=== PATIENT | female | born 1945 | race African-American/Black ===

== ENCOUNTER 2018-03-27 16:13 | Inpatient (IN) | payer MEDICARE, OTHER ==
[~2018-03-27] VITALS: Ht 160 cm; Wt 56.0 kg
--- OUTSIDE RECORDS SUMMARY | 2018-03-27 16:16 | XMS REPORT ---
Author Author [facility] Address Unknown Phone Unavailable Care Team Providers Care Clam Picker Name Role Phone Unavailable Unavailable Payers Payer Name Policy Type Policy Number Effective Date Expiration Date Problems This patient has no known problems. Allergies, Adverse Reactions, Alerts Allergy Name Allergy Type Status Severity Reaction(s) Onset Date Inactive Date Treating Clinician Comments Penicillins DA Active SV 2018-03-23 00:00:00 No Known Drug Allergies DA Active U 2010-01-18 00:00:00 Medications This patient has no known medications.
--- NOTE | 2018-03-27 16:56 | Diagnostic Imaging Report ---
ADDENDUM #1 This addendum was made for billing purposes: Exam was performed per stroke protocol. Per face sheet, patient is with altered mental status. Signed by: Dr. Cachorro Keating M.D. on 04/06/2018 1:55 PM ORIGINAL REPORT Exam: Head CT without contrast History: Rule out CVA. Comparison studies: None Technique: Axial images were obtained from the skull base to the vertex. Coronal and sagittal images reconstructed from the axial data. Dose modulation, iterative reconstruction, and/or weight based adjustment of the mA/kV was utilized to reduce the radiation dose to as low as reasonably achievable. Findings: Scalp: No abnormalities. Bones: No fractures, blastic or lytic lesions. Brain sulci: Appropriate for age. Ventricles: Normal in size and configuration. No hydrocephalus. Extra-axial spaces: No masses, no fluid collection. Scattered dystrophic calcification, most of which are leptomeningeal-based without surrounding edema or mass effect. Parenchyma: No mass, acute hemorrhage or acute or chronic cortical vascular insults. A few scattered hypodensities in the supratentorial white matter are nonspecific but most compatible with chronic microvascular ischemic changes. Sellar/suprasellar region: No abnormalities. Craniocervical junction: Patent foramen magnum. No Chiari one malformation. Incidental findings: Atherosclerotic calcifications in the carotid siphons and in the left intradural vertebral artery. IMPRESSION: No acute intracranial abnormalities. Specifically, no mass, acute hemorrhage or acute cortical vascular insults. Chronic findings: 1. Mild generalized volume loss. 2. Mild chronic microvascular ischemic changes. 3. Incidental scattered dystrophic calcifications. Similar findings can be seen with the chronic calcified nodular stage of neurocysticercosis. Signed by: Dr. Cachorro Keating M.D. on 03/27/2018 4:53 PM
[2018-03-27 17:06] LABS: ABG PCO2 36 mmHg (41-51); ABG PH 7.51 (7.31-7.41); ABG PO2 81 mmHg (80-105)
[2018-03-27 17:07] LABS: ABG HCO3 29 mmol/L (23-28)
[2018-03-27 17:15] LABS: CLARITY,URINE SL CLOUDY (CLEAR); COLOR,URINE YELLOW (YELLOW); LEUKOCYTE ESTERASE ,URINE NEGATIVE (NEGATIVE); NITRITE,URINE NEGATIVE (NEGATIVE); PROTEIN,URINE DIPSTICK 2+ (NEGATIVE)
[2018-03-27 17:16] LABS: BILIRUBIN,URINE NEGATIVE (NEGATIVE); KETONES,URINE TRACE (NEGATIVE); URINE UROBILINOGEN 0.2 mg/dL (0.2 - 1)
[2018-03-27 17:18] LABS: AMPHETAMINES SCREEN,URINE NEGATIVE (NEGATIVE); BENZODIAZEPINES SCREEN,URINE NEGATIVE (NEGATIVE); PHENCYCLIDINE SCREEN,URINE NEGATIVE (NEGATIVE)
[2018-03-27 17:20] LABS: BASOPHILS # (AUTO) 0.1 (0.0-0.1); BASOPHILS % 0.9 % (0.0-1.0); EOSINOPHILS # (AUTO) 0.3 (0.0-0.4); HEMATOCRIT 30.4 % (34.2-44.1); HEMOGLOBIN 9.7 g/dL (12.0-16.0); LYMPHOCYTES # (AUTO) 2.9 (1.0-3.2); LYMPHOCYTES % 40.4 % (18.0-39.1); MEAN CORPUSCULAR HEMOGLOBIN 26.9 pg (28-32); MEAN CORPUSCULAR HGB CONC 31.9 g/dL (31-35); MEAN CORPUSCULAR VOLUME 84.2 fL (81-99); MONOCYTES # (AUTO) 0.9 (0.2-0.8); MONOCYTES % 13.2 % (4.4-11.3); NEUTROPHILS # (AUTO) 2.9 (2.1-6.9); NEUTROPHILS % 41.2 % (38.7-80.0); PLATELET COUNT 130 x10e3/uL (140-360); RED BLOOD COUNT 3.61 x10e6/uL (3.6-5.1); RED CELL DISTRIBUTION WIDTH 16.7 % (11.7-14.4)
[2018-03-27 17:28] LABS: BACTERIA,URINE MANY /HPF; WBC,URINE (MAN) 0-5 /HPF (0-5)
[2018-03-27 17:29] LABS: AMORPHOUS SEDIMENT,URINE MODERATE (FEW)
[2018-03-27 17:35] LABS: ALBUMIN 2.6 g/dL (3.5-5.0); ALBUMIN/GLOBULIN RATIO 0.6 (0.8-2.0); ANION GAP 14.1 mmol/L (8-16); CALCIUM 8.9 mg/dL (8.4-10.2); CREATININE, SERUM 3.64 mg/dL (0.57-1.11); POTASSIUM 4.1 mmol/L (3.5-5.1)
[2018-03-27 17:42] LABS: CREATINE KINASE MB 3.6 ng/mL (0-5.0)
[2018-03-27 17:56] LABS: B-TYPE NATRIURETIC PEPTIDE2 64.9 pg/mL (0-100)
[2018-03-27] MEDS ORDERED: LACTULOSE SYRUP 20 GM/30 ML UDC PO PRN ×2 (18:00→22:00)
--- NOTE | 2018-03-27 18:29 | Diagnostic Imaging Report ---
EXAMINATION: CHEST SINGLE (PORTABLE) INDICATION: Altered mental status. ^ERMD ORDER ^[id number] ^1710 ^Y COMPARISON: None FINDINGS: AP view TUBES and LINES: Right internal jugular dialysis catheter in place with tip overlying right atrium. LUNGS: Lungs are well inflated. Mild central peribronchovascular thickening/cuffing. PLEURA: No significant pleural effusion or pneumothorax. HEART AND MEDIASTINUM: The cardiomediastinal silhouette is unremarkable. Aorta is calcified and tortuous. BONES AND SOFT TISSUES: No acute osseous lesion. Soft tissues are unremarkable. UPPER ABDOMEN: No free air under the diaphragm. IMPRESSION: Mild central peribronchovascular thickening/cuffing. Signed by: Dr. Mc Murray MD on 03/27/2018 6:25 PM
[2018-03-27] MEDS ORDERED: THIAMINE HCL100 MG PO (20:30)
[2018-03-27] MEDS ORDERED: HYDRALAZINE HCL25 MG PO (20:30)
[2018-03-27] MEDS ORDERED: FAMOTIDINE20 MG PO (20:30)
[2018-03-27] MEDS ORDERED: ASPIR 8181 MG PO (20:31)
[2018-03-27] MEDS ORDERED: LACTULOSE20 GM/30 M PO (20:31)
[2018-03-27] MEDS ORDERED: NORVASC5 MG PO (20:31)
[2018-03-27] MEDS ORDERED: LEXAPRO10 MG PO (20:32)
[2018-03-27] MEDS ORDERED: PANTOPRAZOLE SO40 MG PO (20:32)
[2018-03-27] MEDS ORDERED: CALCIUM ACETAT667 M1 PO (20:32)
[2018-03-27] MEDS ORDERED: XIFAXAN550 MG PO (20:33)
[2018-03-27] MEDS ORDERED: SODIUM BICARBO650 MG PO (20:33)
[2018-03-27] MEDS ORDERED: PRAVASTATIN SOD10 MG PO (20:33)
[2018-03-27] MEDS ORDERED: TRAZODONE HCL50 MG PO (20:34)
[2018-03-27 21:45] VITALS: BP 179/81
[2018-03-28] VITALS (17 sets, daily range): BP systolic 116–179; BP diastolic 54–81
[2018-03-28] MEDS: LACTULOSE SYRUP 20 GM/30 ML UDC PO SCH ×3 (04:30→17:30)
--- NOTE | 2018-03-28 12:51 | History and Physical ---
CHIEF COMPLAINT: Altered mental status. HISTORY OF PRESENT ILLNESS: Ms. Ochoa is a 72-year-old female. She is a [facility] resident at [place]. Source of history is the daughter who is sitting at the bedside. Patient was sent here because of altered mental status. In the emergency room, neurology was consulted and ammonia was checked, which was 350, and patient was started on lactulose and was admitted for further treatment. According to the daughter, patient has history of hepatitis C, cirrhosis of the liver, alcoholic liver disease. She lives in [facility]. Her care is at [place]. She is currently obtunded; however, the vital signs have been stable. Blood pressure and heart rate has been stable and she is protecting the airway. REVIEW OF SYSTEMS: Unable to elicit any because of patient's mental status. PAST MEDICAL HISTORY: Hepatitis C, cirrhosis of the liver, end-stage renal disease. She is on dialysis per the family and patient was on her way to dialysis when she was completely obtunded and she was brought in. According to the daughter, the lactulose was as needed and that is why it was not given on time. PAST SURGICAL HISTORY: Unknown. FAMILY AND SOCIAL HISTORY: Longstanding history of alcohol use, currently does not drink. PHYSICAL EXAMINATION VITAL SIGNS: Temperature 97.1, pulse of 88, blood pressure 146/67, respiratory rate of 18, O2 sat 96% on room air. HEENT: Head atraumatic, normocephalic. NECK: Supple. She grimaces on deep sternal rub. She has an NG tube. CHEST: Clear to auscultation bilaterally. No wheezing. HEART: S1, S2 audible. No murmurs, gallops, or rub. ABDOMEN: Soft, nontender, nondistended. EXTREMITIES: No clubbing, cyanosis, or edema. NEUROLOGICAL: She is completely unresponsive, grimaces on deep sternal rub. IMAGING: Chest x-ray is normal. Brain CT is showing generalized volume loss, but no acute stroke. ASSESSMENT: Ms. Ochoa is a 72-year-old female, she presented with altered mental status. CURRENT PROBLEMS 1. Hepatic encephalopathy. 2. History of hepatitis C. 3. History of alcoholic liver disease. 4. End-stage renal disease. 5. Hypertension. PLAN 1. Neurology consultation was done from the emergency room. I have discussed the case with Dr. Willis. It seems like it is due to metabolic encephalopathy due to hyperammonemia. 2. We will start the patient on lactulose and rifaximin. 3. GI consult. 4. Nephrology consult for routine hemodialysis. We will recheck labs and ammonia in a.m. Transfer the patient to [facility]. Job#: [id number] LPA
--- NOTE | 2018-03-28 14:53 | Consultation ---
DATE OF CONSULTATION: March 28, 2018 NEUROLOGY CONSULT NOTE HISTORY OF PRESENT ILLNESS: Ms. Ochoa is a 72-year-old woman with past medical history significant for hypertension, diabetes mellitus, end-stage renal disease on hemodialysis Mondays, Wednesdays, and Fridays, hepatitis C, and alcoholic cirrhosis, admitted to [facility] on March 27, 2018 with altered mental status. On the day of admission, the patient was en route to hemodialysis when she became confused. Ms. Ochoa was brought to the emergency center at [facility] for further evaluation of her confusion. Upon arrival in the emergency center, the patient was afebrile with a blood pressure of 172/59 mmHg and a pulse of 70 beats per minute. On neurological examination, the patient was noted to be disoriented with abnormal mood/affect or speech. While in the emergency center, routine blood and urine studies were ordered. Amongst these results, was an elevated ammonia level of 350. A CT of the brain without contrast was performed as well. This study did not reveal evidence of recent large territorial ischemia or hemorrhage. Ms. Ochoa was admitted to [facility] under observation status for treatment of hyperammonemia and end-stage renal disease. According to one of the patient's daughters, who is at the bedside, Ms. Ochoa has had numerous hospitalizations with poor altered mental status. According to this daughter, the patient will often refuse her medications, including her lactulose, leading to altered mental status and subsequent hospital admission. REVIEW OF SYSTEMS: Unable to assess secondary to encephalopathy. PAST MEDICAL HISTORY: Hypertension, diabetes mellitus, end-stage renal disease on hemodialysis on Mondays, Wednesdays and Fridays, hepatitis C, alcoholic cirrhosis,. PAST SURGICAL HISTORY: None. PAST HOSPITALIZATIONS: Childbirth x4, frequent hospitalizations with altered mental status as detailed in the history of present illness. FAMILY MEDICAL HISTORY: The patient's paternal and maternal grandparents are . Their medical histories are unknown. The patient's father is from an unknown cancer. Her mother is from a stroke. Ms. Ochoa is an only child. Patient does have 4 daughters, all of whom are alive. One daughter has hypertension, diabetes mellitus, and coronary artery disease with a prior myocardial infarction. The remaining 3 daughters are reportedly healthy. SOCIAL HISTORY: Ms. Ochoa is . She is a [facility] resident. The patient is retired. The patient is a current smoker. She has smoked cigarettes for approximately 50 years. At present, Ms. Ochoa does not drink alcohol. She does have a prior history of alcohol abuse. She stopped drinking approximately 5 years ago. Ms. Ochoa has a remote history of intravenous heroin use. Her daughter reports a prior history of marijuana use with last use being 15 to 20 years ago. HOME MEDICATIONS 1. Amlodipine 10 mg by mouth daily. 2. Aspirin 81 mg by mouth daily. 3. Calcium acetate 667 mg by mouth daily. 4. Lexapro 10 mg by mouth daily. 5. Pepcid 20 mg by mouth daily. 6. Hydralazine 50 mg by mouth every 12 hours. 7. Lactulose 30 mL by mouth daily. 8. Protonix 40 mg by mouth daily. 9. Pravastatin 10 mg by mouth at bedtime daily. 10. Rifaximin 550 mg by mouth twice daily. 11. Sodium bicarbonate 650 mg by mouth daily. 12. Thiamine 100 mg by mouth daily. 13. Trazodone 50 mg by mouth at bedtime daily. ALLERGIES: PENICILLIN. NO KNOWN FOOD ALLERGIES. NO KNOWN ALLERGIES TO LATEX. NO KNOWN ALLERGIES TO IODINE OR OTHER CONTRAST MATERIALS. PHYSICAL EXAMINATION VITAL SIGNS: Height 63 inches, weight 130 pounds, BMI 23.0 kg/m2. Blood pressure 146/67 mmHg, pulse 88 beats per minute, respiratory rate 14 breaths per minute, oxygen saturation 96% on room air. GENERAL: The patient is obtunded. HEENT: Normocephalic, atraumatic. Pupils are equal, round, and reactive to light. Moist mucous membranes. NECK: Supple. No appreciable thyromegaly. No appreciable carotid bruits. CARDIOVASCULAR: S1 and S2, regular rate and rhythm. No murmurs, rubs, or gallops. RESPIRATORY: Clear to auscultation bilaterally. No wheezes, rhonchi, or rales. EXTREMITIES: The skin is warm and dry. No clubbing, cyanosis, or edema. The posterior tibial and dorsalis pedis pulses are 1+ and symmetric. SKIN: No rashes or lesions. NEUROLOGIC: Memory/Attention: The patient is obtunded. Cranial Nerves: Pupils are 5 mm, and briskly reactive to 3 mm. Corneal, oculocephalic, and gag reflexes are intact. The face appears symmetric. Strength: Bulk is diminished throughout. Ms. Ochoa withdrawals all 4 extremities to peripheral noxious stimulation. Tone is normal. DTRs: Deep tendon reflexes are 2+ and symmetric at the triceps, biceps, brachioradialis, and patellas. Deep tendon reflexes are absent and symmetric at the Achilles. Plantar responses are flexor bilaterally. Sensation: Sensation is as per motor exam. Cerebellar: Unable to assess secondary to encephalopathy. Gait: Deferred. Speech: No spontaneous speech is produced during this encounter. Involuntary Movements: None. Pronator Drift: As per motor exam. LABORATORY DATA: The patient's comprehensive metabolic panel reveals an elevated creatinine of 3.64, a low estimated GFR of 12, an elevated serum glucose of 154, an elevated AST of 45, a decreased albumin of 2.6, an elevated globulin of 4.6, and a decreased albumin to globulin ratio of 0.6. Lactic acid 19.0. B-natriuretic peptide 64.9. Ammonia 350. Serum glucoses have ranged from 88 to 158. The CBC with differential and platelets reveals a white blood cell count 7.05 with 41.2% neutrophils, 40.4% lymphocytes, 13.2% monocytes, 4.0% eosinophils, and 0.9% basophils. The hemoglobin and hematocrit are 9.7 and 30.4, respectively. The platelet count is 130. An arterial blood gas revealed a pH of 7.51, a pCO2 of 36, a pO2 of 81, bicarbonate of 29, O2 saturation of 97.0, base excess of 6.0, and FiO2 of 21. A urinalysis was significant for 2+ protein, trace ketones, moderate amorphous sediment, and many urine bacteria. Urine drug screen was positive for opiates. DIAGNOSTIC STUDIES 1. Electrocardiogram, 03/27/2018: Normal sinus rhythm at 75 beats per minute. QT prolongation is noted. 2. CT of the brain without contrast, 03/27/2018: On my review, there is no evidence of recent large territorial ischemia, hemorrhage, mass, or mass effect. There is diffuse cerebral atrophy, appropriate for age. There are findings compatible with [id number] chronic small vessel ischemic disease. 3. Chest x-ray, 03/27/2018: Mild central peribronchovascular thickening/cuffing. 4. Echocardiogram, 03/28/2018: Ejection fraction 65%. Concentric left ventricular hypertrophy. Mild mitral regurgitation. ASSESSMENT AND PLAN: Ms. Ochoa is a 72-year-old woman with an extensive past medical history as detailed, admitted to [facility] on March 27, 2018 with encephalopathy in the setting of hyperammonemia and end-stage renal disease. Ms. Ochoa is obtunded on neurological examination. Otherwise, no focal findings are appreciated. Patient's laboratory data and other diagnostic studies have been reviewed and are documented above. In my opinion, Ms. Ochoa's encephalopathy is due to hyperammonemia with a minor contribution from end-stage renal disease. RECOMMENDATIONS 1. Additional laboratory data will be ordered as follows: Thyroid function test, a vitamin B1 level, a vitamin B12 level, rapid plasma reagin, blood and urine cultures. These studies will be ordered to evaluate for other possible causes of altered mentation. A repeat ammonia level has been ordered. 2. Continue treatment with lactulose as prescribed for hyperammonemia. 3. Continue hemodialysis for end-stage renal disease. 4. Limit treatment with sedative/hypnotic and pain medications as these will alter the patient's sensorium. 5. Utilize environmental cues to limit delirium. 6. Defer treatment of the remaining medical comorbidities to the primary and other services following the patient. Thank you for this consultation. I will continue to follow this patient while she remains in the hospital. TIME SPENT: 70 minutes. Job#: [id number] PKU MTDD
[2018-03-28 15:09] LABS: FREE THYROXINE INDEX 2.1984 (1.4-3.8); THYROID STIMULATING HORMONE 0.695 uIU/mL (0.350-4.940)
--- NOTE | 2018-03-28 15:31 | Consultation ---
DATE OF CONSULTATION: March 28, 2018 HISTORY: This is a 72-year-old who supposedly has history of cirrhosis secondary to previous history of alcohol abuse, presented to the hospital because of mental status changes and become weak and confused. Patient apparently was found to have evidence of hepatic encephalopathy. Per family, she does not have any problem with bleeding or abdominal pain. MEDICAL HISTORY: Significant for history of alcohol abuse and also history of renal disease, on hemodialysis. MEDICATIONS: Including thiamine, hydralazine, Norvasc, aspirin, calcium acetate, Lexapro, Protonix, pravastatin, Xifaxan, trazodone. ALLERGIES: NONE. SOCIAL HISTORY: Past history of alcohol use. FAMILY HISTORY: Noncontributory. REVIEW OF SYSTEMS: At this point is unobtainable. EXAM GENERAL: Patient is lying in bed, currently noncommunicative. VITAL SIGNS: Afebrile currently. HEAD, EYES, EARS, NOSE, AND THROAT: Normocephalic, atraumatic. NG tube is in place HEART: Regular. LUNGS: Clear. ABDOMEN: Soft, nontender at this point. EXTREMITIES: No clubbing. LAB VALUES: WBC of 7.5, hemoglobin of 9.7, platelets are 130. The chemistry on admission shows BUN of 26, creatinine of 3.64, AST of 45. Ammonia level 350. CAT scan of the head shows mild chronic microvascular ischemic changes and dystrophic calcifications. IMPRESSION 1. Mental status changes secondary to hepatic encephalopathy. 2. History of alcohol use and cirrhosis. 3. Anemia. RECOMMENDATIONS: Continue on lactulose at this point per NG along with Xifaxan and follow labs clinically. Job#: [id number] GUZMAN cc:TRACE WALDRON MD
--- NOTE | 2018-03-28 16:56 | Consultation ---
DATE OF CONSULTATION: NEPHROLOGY CONSULTATION REASON FOR CONSULT: End-stage renal disease. HISTORY OF PRESENT ILLNESS: Ms. Ochoa is a 72-year-old female with the following problem list: 1. End-stage renal disease. 2. End-stage liver disease with advanced cirrhosis and recurrent elevation in ammonia levels and encephalopathy. The patient is currently comatose and cannot provide any history or review of systems. The patient's daughter was at the bedside. The patient is a retirement patient. She was sent to the emergency room by the retirement due to comatose status. She was diverted from [facility] due to lack of bed availability and was admitted to this facility last night. PAST MEDICAL HISTORY: As above. SOCIAL HISTORY: alf resident. FAMILY HISTORY: Noncontributory. MEDICATIONS: Per medication list. PHYSICAL FINDINGS GENERAL: Elderly female underweight, comatose, will not arouse and in no acute distress. VITAL SIGNS: Blood pressure 163/67. SHENT: Head normocephalic, atraumatic. Fundi not visualized. Conjunctivae anicteric. NECK: Supple. LUNGS: Clear. HEART: Normal heart sounds. No additional sounds. ABDOMEN: Soft, nontender, nondistended. EXTREMITIES: No cyanosis, clubbing, or edema. LABORATORY FINDINGS: Noted and reviewed. ASSESSMENT AND PLAN 1. End-stage renal disease. The patient will receive hemodialysis per orders ultrafiltration as tolerated. 2. Encephalopathy secondary to high ammonia level estimated yesterday at 350 measured. Further management per primary care and GI. 3. Anemia of chronic disease. Hematocrit and hemoglobin are stable. 4. Disposition. We will follow this patient with you. I discussed my evaluation, assessment and plan of care with the patient's daughter at the bedside. All her questions were answered to her satisfaction until she had none. Job#: [id number] YUMIKO
[2018-03-28] MEDS ORDERED: SODIUM CHLORIDE 0.9% 1000ML 2,000 ML ONE (17:20)
[2018-03-28] MEDS: RIFAXIMIN 550 MG TABLET PO SCH (17:30)
[2018-03-28] MEDS ORDERED: HEPARIN SOD (PORCINE) 1000 UNIT/ML SDV IV PRN (19:00)
[2018-03-28] MEDS ORDERED: SODIUM CHLORIDE 0.9% 250ML 1,000 ML IV PRN (19:00)
[2018-03-28] MEDS ORDERED: MANNITOL 25% 12.5GM/50 ML VIAL IV PRN (19:00)
[2018-03-28] MEDS ORDERED: SODIUM CHLORIDE 0.9% 1000ML 2,000 ML IV PRN (19:00)
[2018-03-29] VITALS (20 sets, daily range): BP systolic 135–185; BP diastolic 49–86
[2018-03-29] MEDS: CEFTRIAXONE SOD 1 GM VIAL IV SCH ×2 (00:23→20:19)
[2018-03-29] MEDS: LACTULOSE SYRUP 20 GM/30 ML UDC PO SCH ×5 (00:23→22:22)
[2018-03-29 01:07] LABS: INR 1.13; PROTHROMBIN TIME 15.5 seconds (11.9-14.5)
[2018-03-29 01:15] LABS: BASOPHILS # (AUTO) 0.1 (0.0-0.1); BASOPHILS % 0.5 % (0.0-1.0); EOSINOPHILS # (AUTO) 0.1 (0.0-0.4); EOSINOPHILS % 0.8 % (0.0-6.0); HEMATOCRIT 33.8 % (34.2-44.1); HEMOGLOBIN 10.7 g/dL (12.0-16.0); LYMPHOCYTES # (AUTO) 1.7 (1.0-3.2); LYMPHOCYTES % 15.8 % (18.0-39.1); MEAN CORPUSCULAR HEMOGLOBIN 26.3 pg (28-32); MEAN CORPUSCULAR HGB CONC 31.7 g/dL (31-35); MONOCYTES # (AUTO) 1.3 (0.2-0.8); NEUTROPHILS # (AUTO) 7.4 (2.1-6.9); NEUTROPHILS % 69.9 % (38.7-80.0); PLATELET COUNT 53 x10e3/uL (140-360); RED BLOOD COUNT 4.07 x10e6/uL (3.6-5.1); RED CELL DISTRIBUTION WIDTH 16.6 % (11.7-14.4)
[2018-03-29 01:21] LABS: ALBUMIN 2.6 g/dL (3.5-5.0); ALBUMIN/GLOBULIN RATIO 0.5 (0.8-2.0); ANION GAP 14.5 mmol/L (8-16); CALCIUM 9.1 mg/dL (8.4-10.2); CREATININE, SERUM 2.56 mg/dL (0.57-1.11); PHOSPHORUS 3.3 MG/DL (2.3-4.7); POTASSIUM 3.5 mmol/L (3.5-5.1)
[2018-03-29 05:22] LABS: BASOPHILS # (AUTO) 0.1 (0.0-0.1); BASOPHILS % 0.6 % (0.0-1.0); EOSINOPHILS # (AUTO) 0.1 (0.0-0.4); EOSINOPHILS % 1.4 % (0.0-6.0); HEMATOCRIT 32.2 % (34.2-44.1); HEMOGLOBIN 10.2 g/dL (12.0-16.0); LYMPHOCYTES # (AUTO) 2.4 (1.0-3.2); MEAN CORPUSCULAR HEMOGLOBIN 26.7 pg (28-32); MEAN CORPUSCULAR HGB CONC 31.7 g/dL (31-35); MEAN CORPUSCULAR VOLUME 84.3 fL (81-99); MONOCYTES # (AUTO) 0.9 (0.2-0.8); MONOCYTES % 9.2 % (4.4-11.3); NEUTROPHILS # (AUTO) 6.6 (2.1-6.9); NEUTROPHILS % 64.6 % (38.7-80.0); PLATELET COUNT 69 x10e3/uL (140-360); RED BLOOD COUNT 3.82 x10e6/uL (3.6-5.1); RED CELL DISTRIBUTION WIDTH 16.9 % (11.7-14.4)
[2018-03-29 05:49] LABS: CREATININE, SERUM 3.07 mg/dL (0.57-1.11)
[2018-03-29] MEDS: ASPIRIN 81 MG CHEW TAB PO SCH (09:23)
[2018-03-29] MEDS: SODIUM BICARBONATE 650 MG TAB PO SCH (09:23)
[2018-03-29] MEDS: CALCIUM ACETATE 667 MG GELCAP PO SCH (09:23)
[2018-03-29] MEDS: RIFAXIMIN 550 MG TABLET PO SCH ×2 (09:23→16:52)
[2018-03-29] MEDS: THIAMINE HCL 100 MG TAB PO SCH (09:23)
[2018-03-29] MEDS: AMLODIPINE BESYLATE 5 MG TAB PO SCH (09:23)
[2018-03-29] MEDS: HYDRALAZINE HCL 25 MG TAB PO SCH ×2 (09:24→20:20)
[2018-03-29] MEDS ORDERED: CYCLOBENZAPRINE HCL 10 MG TAB PO PRN (14:15)
[2018-03-29] MEDS: TRAMADOL HCL 50 MG TAB PO PRN (16:58)
--- NOTE | 2018-03-29 18:03 | Diagnostic Imaging Report ---
Exam: Ultrasound of abdomen ascites survey Clinical history: Ascites. Technique: Using a curvilinear array transducer, real-time imaging was obtained of the abdomen. Findings: No free fluid or likely fluid collections identified within the abdomen. Impression: No ascites as per clinical query. Signed by: Dr. Radha Pritchett M.D. on 03/29/2018 6:00 PM
[2018-03-30 04:32] VITALS: BP 150/59
[2018-03-30] MEDS: LACTULOSE SYRUP 20 GM/30 ML UDC PO SCH ×2 (04:36→08:34)
[2018-03-30 04:56] LABS: BASOPHILS % 0.5 % (0.0-1.0); EOSINOPHILS # (AUTO) 0.3 (0.0-0.4); EOSINOPHILS % 4.2 % (0.0-6.0); HEMATOCRIT 28.2 % (34.2-44.1); HEMOGLOBIN 9.1 g/dL (12.0-16.0); LYMPHOCYTES # (AUTO) 2.8 (1.0-3.2); LYMPHOCYTES % 37.9 % (18.0-39.1); MEAN CORPUSCULAR HEMOGLOBIN 26.8 pg (28-32); MEAN CORPUSCULAR HGB CONC 32.3 g/dL (31-35); MEAN CORPUSCULAR VOLUME 83.2 fL (81-99); MONOCYTES # (AUTO) 0.7 (0.2-0.8); MONOCYTES % 9.9 % (4.4-11.3); NEUTROPHILS # (AUTO) 3.4 (2.1-6.9); NEUTROPHILS % 47.2 % (38.7-80.0); PLATELET COUNT 70 x10e3/uL (140-360); RED BLOOD COUNT 3.39 x10e6/uL (3.6-5.1); RED CELL DISTRIBUTION WIDTH 16.7 % (11.7-14.4)
[2018-03-30 05:14] LABS: INR 1.08
[2018-03-30 05:24] LABS: ALBUMIN 2.2 g/dL (3.5-5.0); ALBUMIN/GLOBULIN RATIO 0.5 (0.8-2.0); ANION GAP 13.4 mmol/L (8-16); CALCIUM 8.5 mg/dL (8.4-10.2); CREATININE, SERUM 3.61 mg/dL (0.57-1.11); MAGNESIUM 2.3 MG/DL (1.3-2.1); PHOSPHORUS 5.4 MG/DL (2.3-4.7); POTASSIUM 3.4 mmol/L (3.5-5.1)
[2018-03-30 08:00] VITALS: BP 152/62
[2018-03-30] MEDS: TRAMADOL HCL 50 MG TAB PO PRN (08:00)
[2018-03-30] MEDS: HYDRALAZINE HCL 25 MG TAB PO SCH ×2 (08:30→20:07)
[2018-03-30] MEDS: CALCIUM ACETATE 667 MG GELCAP PO SCH (08:33)
[2018-03-30] MEDS: RIFAXIMIN 550 MG TABLET PO SCH ×2 (08:33→16:00)
[2018-03-30] MEDS: SODIUM BICARBONATE 650 MG TAB PO SCH (08:33)
[2018-03-30] MEDS: ASPIRIN 81 MG CHEW TAB PO SCH (08:33)
[2018-03-30] MEDS: THIAMINE HCL 100 MG TAB PO SCH (08:33)
[2018-03-30 12:06] VITALS: BP 173/79
[2018-03-30] MEDS: AMLODIPINE BESYLATE 5 MG TAB PO SCH (12:18)
[2018-03-30 12:19] VITALS: BP 152/62
[2018-03-30 16:00] VITALS: BP 140/62
[2018-03-30] MEDS: BALSAM PERU/CASTOR OIL 60 GM OINT...G. TP SCH (16:00)
[2018-03-30 20:00] VITALS: BP 156/81
[2018-03-31] VITALS (8 sets, daily range): BP systolic 116–139; BP diastolic 56–75
[2018-03-31] MEDS: LACTULOSE SYRUP 20 GM/30 ML UDC PO SCH (08:30)
[2018-03-31] MEDS: HYDRALAZINE HCL 25 MG TAB PO SCH ×2 (08:30→20:25)
[2018-03-31] MEDS: THIAMINE HCL 100 MG TAB PO SCH (09:21)
[2018-03-31] MEDS: RIFAXIMIN 550 MG TABLET PO SCH ×2 (09:21→16:12)
[2018-03-31] MEDS: BALSAM PERU/CASTOR OIL 60 GM OINT...G. TP SCH ×2 (09:21→16:12)
[2018-03-31] MEDS: CALCIUM ACETATE 667 MG GELCAP PO SCH (09:21)
[2018-03-31] MEDS: SODIUM BICARBONATE 650 MG TAB PO SCH (09:21)
[2018-03-31] MEDS: AMLODIPINE BESYLATE 5 MG TAB PO SCH (09:21)
[2018-03-31] MEDS: ASPIRIN 81 MG CHEW TAB PO SCH (09:21)
--- NOTE | 2018-03-31 15:15 | Discharge Summary ---
The patient was admitted to Dr. Guajardo. long term patient of Dr. Hager on chronic hemodialysis. She is 72 years old and resides in [facility]. Admitted with altered mental status. She was found to have hepatic encephalopathy. Ammonia level was 350. Has a history of hepatitis C, cirrhosis and end-stage renal disease on dialysis. Her medications were adjusted. Given lactulose and rifaximin and gradually improved and became lucid. Her other medications were also reduced. She was seen by Dr. Fisher, Dr. Willis, and Dr. Dolan. She will be discharged once long term and dialysis bed have been arranged. Her hepatic encephalopathy improved. She has anemia apparently of chronic disease and chronic thrombocytopenia presumably related to her liver failure. Thyroid was normal. Coags were near normal. Ammonia level fell to 98. She was discharged to continue thiamine 100 mg a day, sodium bicarbonate 650 a day, rifaximin 550 a day, PhosLo, aspirin 81, Norvasc 10, lactulose 40 grams at breakfast, tramadol 25 mg q.8 p.r.n., cyclobenzaprine 10 mg q.8 p.r.n. muscle spasm, Apresoline 50 mg b.i.d., nitrofurantoin 50 mg for FLAKITA p.o. Enterococcus faecium was grown sensitive only to Cubicin, linezolid, and nitrofurantoin. There was no evidence of pyuria. LOVE JENKINS MD Job#: [id number]
[2018-03-31] MEDS: TRAMADOL HCL 50 MG TAB PO PRN (15:47)
[2018-03-31] MEDS: NITROFURANTOIN 50 MG CAP PO SCH (15:47)
[2018-04-01] VITALS: BP 123/67
[2018-04-01 04:00] VITALS: BP 130/59
[2018-04-01] MEDS: LACTULOSE SYRUP 20 GM/30 ML UDC PO SCH (07:30)
[2018-04-01 08:00] VITALS: BP 130/59
[2018-04-01 08:18] VITALS: BP 148/66
[2018-04-01] MEDS: HYDRALAZINE HCL 25 MG TAB PO SCH (08:30)
[2018-04-01] MEDS: THIAMINE HCL 100 MG TAB PO SCH (09:00)
[2018-04-01] MEDS: RIFAXIMIN 550 MG TABLET PO SCH (09:00)
[2018-04-01] MEDS: ASPIRIN 81 MG CHEW TAB PO SCH (09:00)
[2018-04-01] MEDS: AMLODIPINE BESYLATE 5 MG TAB PO SCH (09:00)
[2018-04-01] MEDS: CALCIUM ACETATE 667 MG GELCAP PO SCH (09:00)
[2018-04-01] MEDS: BALSAM PERU/CASTOR OIL 60 GM OINT...G. TP SCH (09:00)
[2018-04-01] MEDS: NITROFURANTOIN 50 MG CAP PO SCH (09:00)
[2018-04-01] MEDS: SODIUM BICARBONATE 650 MG TAB PO SCH (09:00)
[2018-04-01 12:00] VITALS: BP 158/71
== END 2018-04-01 12:28 | disposition home or self-care (01) | DRG 441 ==
LOC: ER 16:13 → ERHOLD 18:01 → IMCU 21:41 → OBSVTOIN 03-28 07:57 → IMCU 03-28 15:35 → MED/SURG2 03-31 20:40
PROVIDERS: ADMIT Internal Medicine; ATTEND Internal Medicine
PROC: 5A1D70Z Performance of Urinary Filtration, Intermittent, Less than 6 Hours Per Day (ICD-10-PCS; principal; 2018-03-28)
PROC: 5A1D70Z Performance of Urinary Filtration, Intermittent, Less than 6 Hours Per Day (ICD-10-PCS; 2018-03-31)
DX: K72.01 Acute and subacute hepatic failure with coma (principal); N18.6 End stage renal disease; G93.41 Metabolic encephalopathy; T83.511A Infection and inflammatory reaction due to indwelling urethral catheter, initial encounter; I12.0 Hypertensive chronic kidney disease with stage 5 chronic kidney disease or end stage renal disease; L89.152 Pressure ulcer of sacral region, stage 2; Z99.2 Dependence on renal dialysis; Z86.19 Personal history of other infectious and parasitic diseases; K70.30 Alcoholic cirrhosis of liver without ascites; E11.22 Type 2 diabetes mellitus with diabetic chronic kidney disease; D63.8 Anemia in other chronic diseases classified elsewhere; F10.21 Alcohol dependence, in remission; B95.2 Enterococcus as the cause of diseases classified elsewhere
CPT/HCPCS: 36415; 36600; 70450; 71045; 76705; 80048; 80053; 80307; 81001; 82140; 82248; 82550; 82553; 82607; 82805; 82948; 83605; 83735; 83880; 84100; 84425; 84436; 84443; 84479; 84484; 85025; 85610; 86592; 86706; 87040; 87086; 87186; 90962; 93005; 93306; 97139; 99284; G0378; J0696; J1644; J2150; J3411; J7030

== ENCOUNTER 2018-04-03 17:31 | Inpatient (IN) | payer MEDICARE ==
[~2018-04-03] VITALS: Ht 157.5 cm; Wt 55.5 kg
[2018-04-03] MEDS: LACTULOSE SYRUP 20 GM/30 ML UDC RC SCH (01:40)
[~2018-04-03 17:31] MED LIST: ASPIR 8181 MG PO; CALCIUM ACETAT667 M1 PO; FAMOTIDINE20 MG PO; HYDRALAZINE HCL25 MG PO; LACTULOSE20 GM/30 M PO; LEXAPRO10 MG PO; NORVASC5 MG PO; PANTOPRAZOLE SO40 MG PO; PRAVASTATIN SOD10 MG PO; SODIUM BICARBO650 MG PO; THIAMINE HCL100 MG PO; TRAZODONE HCL50 MG PO; XIFAXAN550 MG PO
[2018-04-03] MEDS ORDERED: SODIUM CHLORIDE 0.9% 1000ML 1,000 ML IV ONE (18:00)
--- NOTE | 2018-04-03 18:41 | Diagnostic Imaging Report ---
Examination: CT head without contrast Clinical Indication: Confusion; altered mental status. Technique: Transaxial noncontrast images from the skull base through the vertex were obtained. Sagittal and coronal reformatted images were done. Dose modulation, iterative reconstruction, and/or weight based adjustment of the mA/kV was utilized to reduce the radiation dose to as low as reasonably achievable. Comparison: Head CT dated 03/27/2018.. Findings: Scalp: No abnormalities. Bones: Intact. No fractures. No blastic or lytic lesions. Brain sulci: Mild volume loss for patient's age. Ventricles: No hydrocephalus. Extra-axial space: No abnormalities. Parenchyma: There are several dystrophic calcifications seen in the supratentorial brain, unchanged and related to prior infection or inflammatory process. There are patchy areas of low-attenuation within subcortical and periventricular white matter, nonspecific, but could represent microvascular ischemic disease. No masses, hemorrhage, or acute or chronic cortical based vascular insults. Suprasellar region: No abnormalities. Craniocervical junction: The foramen magnum is patent. No Chiari one malformation. Incidental findings: Atherosclerotic calcification of the cavernous and supraclinoid internal carotid and V4 segments of the bilateral vertebral arteries. Impression: 1. No new or acute intracranial finding when compared to prior head CT dated 03/27/2018. 2. Unchanged mild chronic microvascular ischemic change and volume loss. Signed by: Dr. Ghazal Mercado M.D. on 04/03/2018 6:37 PM
[2018-04-03 19:00] LABS: BASOPHILS % 0.4 % (0.0-1.0); EOSINOPHILS # (AUTO) 0.2 (0.0-0.4); EOSINOPHILS % 1.7 % (0.0-6.0); HEMATOCRIT 28.5 % (34.2-44.1); HEMOGLOBIN 9.2 g/dL (12.0-16.0); LYMPHOCYTES # (AUTO) 2.7 (1.0-3.2); LYMPHOCYTES % 29.2 % (18.0-39.1); MEAN CORPUSCULAR HGB CONC 32.3 g/dL (31-35); MEAN CORPUSCULAR VOLUME 83.6 fL (81-99); MONOCYTES % 10.6 % (4.4-11.3); NEUTROPHILS # (AUTO) 5.4 (2.1-6.9); NEUTROPHILS % 57.8 % (38.7-80.0); PLATELET COUNT 126 x10e3/uL (140-360); RED BLOOD COUNT 3.41 x10e6/uL (3.6-5.1)
[2018-04-03 19:19] LABS: ALBUMIN 2.3 g/dL (3.5-5.0); ALBUMIN/GLOBULIN RATIO 0.5 (0.8-2.0); ANION GAP 18.3 mmol/L (8-16); CALCIUM 8.4 mg/dL (8.4-10.2); CREATININE, SERUM 4.79 mg/dL (0.57-1.11); MAGNESIUM 2.4 MG/DL (1.3-2.1); POTASSIUM 4.3 mmol/L (3.5-5.1)
[2018-04-03 19:24] LABS: ABG HCO3 19 mmol/L (23-28); ABG PCO2 27 mmHg (41-51); ABG PH 7.46 (7.31-7.41); ABG PO2 97 mmHg (80-105)
--- NOTE | 2018-04-03 19:29 | Diagnostic Imaging Report ---
EXAMINATION: CHEST SINGLE (PORTABLE) INDICATION: Altered mental status. COMPARISON: 03/27/2018. FINDINGS: AP view TUBES and LINES: Right internal jugular dialysis catheter in place with tip overlying right atrium, unchanged. LUNGS: Bibasilar subsegmental atelectasis. PLEURA: No significant pleural effusion or pneumothorax. HEART AND MEDIASTINUM: The cardiomediastinal silhouette is unremarkable. Aorta is calcified and tortuous. BONES AND SOFT TISSUES: No acute osseous lesion. Soft tissues are unremarkable. UPPER ABDOMEN: No free air under the diaphragm. IMPRESSION: Bibasilar subsegmental atelectasis. No acute abnormality. Signed by: Dr. Radha Pritchett M.D. on 04/03/2018 7:25 PM
[2018-04-03 19:37] LABS: CREATINE KINASE MB 4.7 ng/mL (0-5.0)
[2018-04-03 19:39] LABS: THYROID STIMULATING HORMONE 0.329 uIU/mL (0.350-4.940)
[2018-04-03 20:14] LABS: CLARITY,URINE CLEAR (CLEAR); COLOR,URINE YELLOW (YELLOW); KETONES,URINE NEGATIVE (NEGATIVE); LEUKOCYTE ESTERASE ,URINE NEGATIVE (NEGATIVE); NITRITE,URINE NEGATIVE (NEGATIVE); PROTEIN,URINE DIPSTICK 2+ (NEGATIVE)
[2018-04-03 20:15] LABS: AMPHETAMINES SCREEN,URINE NEGATIVE (NEGATIVE); BENZODIAZEPINES SCREEN,URINE NEGATIVE (NEGATIVE); PHENCYCLIDINE SCREEN,URINE NEGATIVE (NEGATIVE)
[2018-04-03 20:16] LABS: BILIRUBIN,URINE NEGATIVE (NEGATIVE); URINE UROBILINOGEN 0.2 mg/dL (0.2 - 1)
[2018-04-03 20:24] LABS: BACTERIA,URINE MANY /HPF; EPITHELIAL CELLS,URINE RARE /LPF; RBC,URINE 0-5 /HPF (0-5); WBC,URINE (MAN) 0-5 /HPF (0-5); YEAST,URINE RARE
[2018-04-03] MEDS ORDERED: CALCIUM CARBON500 MG PO (20:52)
[2018-04-03] MEDS ORDERED: ATIVAN1 MG PO (20:52)
[2018-04-03] MEDS ORDERED: ZOFRAN4 MG PO (20:52)
[2018-04-03] MEDS ORDERED: COZAAR25 MG PO (20:52)
[2018-04-03] MEDS ORDERED: VIMPAT50 MG PO (20:52)
[2018-04-03] MEDS ORDERED: ULTRAM50 MG PO (20:52)
[2018-04-03] MEDS ORDERED: VITAMIN B-1100 M1 PO (20:52)
[2018-04-03] MEDS ORDERED: NITROFURANTOIN100 MG PO (20:52)
[2018-04-03] MEDS ORDERED: ONDANSETRON HCL INJ 2 MG/ML VIAL IV PRN (21:00)
[2018-04-03] MEDS ORDERED: SODIUM CHLORIDE FLUSH 10 ML SYR INJ PRN (21:00)
[2018-04-03] MEDS ORDERED: DEXTROSE 50% SYRINGE 50 ML IV PRN (21:00)
[2018-04-03] MEDS: INSULIN REGULAR, HUMAN 100 UNIT/1 ML 3ML VIAL SQ SCH (21:06)
[2018-04-03 22:40] VITALS: BP 167/63
[2018-04-04] VITALS (8 sets, daily range): BP systolic 140–194; BP diastolic 62–79
[2018-04-04 06:10] LABS: BASOPHILS % 0.6 % (0.0-1.0); EOSINOPHILS # (AUTO) 0.2 (0.0-0.4); EOSINOPHILS % 2.4 % (0.0-6.0); HEMATOCRIT 27.7 % (34.2-44.1); LYMPHOCYTES # (AUTO) 1.8 (1.0-3.2); LYMPHOCYTES % 24.4 % (18.0-39.1); MEAN CORPUSCULAR HEMOGLOBIN 26.7 pg (28-32); MEAN CORPUSCULAR HGB CONC 32.5 g/dL (31-35); MEAN CORPUSCULAR VOLUME 82.2 fL (81-99); MONOCYTES # (AUTO) 0.9 (0.2-0.8); MONOCYTES % 12.3 % (4.4-11.3); NEUTROPHILS # (AUTO) 4.3 (2.1-6.9); NEUTROPHILS % 59.9 % (38.7-80.0); PLATELET COUNT 128 x10e3/uL (140-360); RED BLOOD COUNT 3.37 x10e6/uL (3.6-5.1); RED CELL DISTRIBUTION WIDTH 17.2 % (11.7-14.4)
[2018-04-04 06:53] LABS: ALBUMIN 2.3 g/dL (3.5-5.0); ALBUMIN/GLOBULIN RATIO 0.5 (0.8-2.0); ANION GAP 16.2 mmol/L (8-16); CALCIUM 8.8 mg/dL (8.4-10.2); CREATININE, SERUM 4.36 mg/dL (0.57-1.11); POTASSIUM 4.2 mmol/L (3.5-5.1)
[2018-04-04 07:21] LABS: MONOCYTES % (MANUAL) 7 % (3.4-9.0)
[2018-04-04 07:22] LABS: EOSINOPHILS % (MANUAL) 2 % (0-7); LYMPHOCYTES % (MANUAL) 28 % (19-48); NEUTROPHILS % (MANUAL) 62 % (40-74)
[2018-04-04 07:23] LABS: PLATELET ESTIMATE SLIGHTLY DECREASED; PLATELET MORPHOLOGY COMMENT NORMAL
[2018-04-04 07:24] LABS: OVALOCYTES FEW; POLYCHROMASIA FEW; RBC MORPHOLOGY COMMENT ABNORMAL
[2018-04-04 07:25] LABS: HYPOCHROMASIA SLIGHT
[2018-04-04] MEDS: INSULIN REGULAR, HUMAN 100 UNIT/1 ML 3ML VIAL SQ SCH ×4 (07:30→20:01)
[2018-04-04] MEDS: LACTULOSE SYRUP 20 GM/30 ML UDC RC SCH ×2 (11:00→21:39)
[2018-04-04] MEDS ORDERED: EPOETIN ALFA 10000 UNIT/ML VIAL SC SCH (11:15)
[2018-04-04] MEDS ORDERED: THIAMINE HCL INJ 100 MG/ML 2ML VIAL IV ONE (11:15)
[2018-04-04] MEDS ORDERED: HYDRALAZINE HCL 20 MG/ML VIAL IV PRN (12:00)
--- NOTE | 2018-04-04 14:19 | Consultation ---
DATE OF CONSULTATION: April 04, 2018 REASON FOR CONSULTATION: ESRD. ATTENDING PHYSICIAN: ER physician. HISTORY OF PRESENT ILLNESS: This is a 72-year-old -[place]ong[place] female with a past medical history of ESRD, on hemodialysis on a Friday, Friday, and Friday schedule with last dialysis almost three days ago. She was just recently discharged less than a week ago; end-stage liver disease with cirrhosis; hepatitis C, was admitted with change in mental status with elevated ammonia levels. At the time of examination, she was lethargic and poorly responsive. REVIEW OF SYSTEMS: From the patient itself could not be obtained. PAST MEDICAL AND SURGICAL HISTORY: As above. PERSONAL AND SOCIAL HISTORY: [facility] with longstanding history of alcohol abuse. MEDICATIONS: See the medication sheet that was reviewed on examination. PHYSICAL EXAMINATION VITAL SIGNS: Blood pressure 168/70, respirations 16, heart rate 74, temperature 98.9. HEENT: Head was atraumatic, normocephalic. CHEST: Reveal fair air entry with occasional crackles. HEART: S1 and S2. ABDOMEN: Soft. Bowel sounds are positive. EXTREMITIES: No edema. STUNT WOMAN: She was lethargic and poorly responsive. LABS: Sodium 142, potassium 4.2, chloride 109, CO2 21, BUN 76, creatinine 4.3, ALT 63, AST 40, ammonia level was 424, albumin 2.3. Chest x-ray did not show any acute pathology. CT of the brain did not show any acute pathology either. White cell count 7.2, hemoglobin 9, hematocrit 27.7, platelets 128. IMPRESSION 1. End-stage renal disease, on hemodialysis on Friday, Friday, Friday schedule with no evidence of volume overload or hyperkalemia. 2. Anemia secondary to end-stage renal disease. 3. Change in mental status on hepatic encephalopathy. PLAN: Strict I's and O's. Hepatitis CBC, BMP in a.m. Nephro-Mary treatment daily, thiamine 100 mg once a day, Epogen 5000 units subcu every Friday, Friday, and Friday and dialysis later today. Further recommendations to follow. Thank you for the consultation. Job#: [id number] PUN
[2018-04-04] MEDS ORDERED: ALBUMIN 25% 12.5GM 0.25 GM/ML BTL IV PRN (15:30)
[2018-04-04] MEDS ORDERED: HEPARIN SOD (PORCINE) 1000 UNIT/ML SDV IV PRN ×2 (15:30)
[2018-04-04] MEDS ORDERED: SODIUM CHLORIDE 0.9% 250ML 500 ML IV PRN (15:30)
[2018-04-04] MEDS ORDERED: SODIUM CHLORIDE 0.9% 1000ML 2,000 ML IV PRN (15:30)
[2018-04-04] MEDS ORDERED: MANNITOL 25% 12.5GM/50 ML VIAL IV PRN (15:30)
[2018-04-05] VITALS (13 sets, daily range): BP systolic 111–175; BP diastolic 51–82
[2018-04-05 05:04] LABS: BASOPHILS % 0.3 % (0.0-1.0); EOSINOPHILS # (AUTO) 0.2 (0.0-0.4); EOSINOPHILS % 2.4 % (0.0-6.0); HEMATOCRIT 26.9 % (34.2-44.1); HEMOGLOBIN 8.6 g/dL (12.0-16.0); LYMPHOCYTES # (AUTO) 3.5 (1.0-3.2); LYMPHOCYTES % 39.9 % (18.0-39.1); MEAN CORPUSCULAR HEMOGLOBIN 26.5 pg (28-32); MONOCYTES # (AUTO) 0.9 (0.2-0.8); MONOCYTES % 10.6 % (4.4-11.3); NEUTROPHILS # (AUTO) 4.1 (2.1-6.9); NEUTROPHILS % 46.6 % (38.7-80.0); PLATELET COUNT 66 x10e3/uL (140-360); RED BLOOD COUNT 3.24 x10e6/uL (3.6-5.1); RED CELL DISTRIBUTION WIDTH 17.1 % (11.7-14.4)
[2018-04-05 05:27] LABS: ANION GAP 12.2 mmol/L (8-16); CALCIUM 8.3 mg/dL (8.4-10.2); CREATININE, SERUM 2.92 mg/dL (0.57-1.11); POTASSIUM 4.2 mmol/L (3.5-5.1)
[2018-04-05] MEDS: INSULIN REGULAR, HUMAN 100 UNIT/1 ML 3ML VIAL SQ SCH ×4 (07:30→21:00)
[2018-04-05] MEDS: FOLIC ACID/CYANOCOB/PYRIDOXINE TAB PO SCH (07:47)
[2018-04-05] MEDS: THIAMINE HCL INJ 100 MG/ML 2ML VIAL IV SCH (08:08)
[2018-04-05] MEDS: LACTULOSE SYRUP 20 GM/30 ML UDC RC SCH (10:30)
[2018-04-05 11:07] LABS: HEMATOCRIT 27.6 % (34.2-44.1); HEMOGLOBIN 8.5 g/dL (12.0-16.0)
[2018-04-05] MEDS: LACTULOSE SYRUP 20 GM/30 ML UDC PO SCH ×3 (12:40→21:00)
[2018-04-05] MEDS ORDERED: MORPHINE SULFATE 2 MG/ML SYR IV PRN (14:45)
--- NOTE | 2018-04-05 18:56 | Diagnostic Imaging Report ---
Exam: Abdominal film Clinical History: NG tube placement Comparison: None. DISCUSSION: Motion artifact IMPRESSION: Enteric tube overlying the esophagus and left upper quadrant. The distal tip location is indeterminate due to the motion. Signed by: Dr. Martín Reynolds M.D. on 04/05/2018 6:52 PM
--- NOTE | 2018-04-05 19:54 | Diagnostic Imaging Report ---
ABDOMEN-1VIEW (KUB) Clinical history: ^repeat kub/ngt placement ^[id number] ^1900 Technique: AP view abdomen Comparison: Earlier same day Findings: Motion artifact. Right upper quadrant clips. Mild gastric distention and gaseous distention of visualized colon. Impression: Limited by motion. NG tube looped with tip oriented cranially over the expected distal esophagus. Signed by: Dr Yoselyn Dailey MD on 04/05/2018 7:51 PM
--- NOTE | 2018-04-05 21:21 | Diagnostic Imaging Report ---
EXAMINATION: Head CT without contrast. HISTORY:Altered mental status. COMPARISON:CT brain from 04/03/2018. TECHNIQUE: Multidetector axial images were obtained from the foramen magnum to the vertex without contrast. The images were reconstructed using brain and bone algorithms. Thin section brain images were reformatted into coronal and sagittal planes. Dose modulation, iterative reconstruction, and/or weight based adjustment of the mA/kV was utilized to reduce the radiation dose to as low as reasonably achievable. Intravenous contrast: None IMAGE QUALITY: Suboptimal evaluation of skull base and posterior fossa structures due to streak artifacts. FINDINGS: Skull/scalp: No lytic or blastic. lesions. No surgical changes. Parenchyma/extra-axial space: Nonspecific few, scattered supratentorial white matter patchy hypodensity are likely related to small vessel ischemic changes. Unchanged predominantly leptomeningeal-based multifocal, supratentorial scattered dystrophic calcification possibly represents a sequelae of prior infection/inflammation or trauma. No acute hemorrhage, mass or acute major vascular territorial infarct. No acute hemorrhage, mass or acute major vascular territorial infarct. Arteries: No density suggestive of thrombosis. Atherosclerotic calcification in bilateral carotid siphon. Dural sinuses: No abnormal density suggestive of thrombosis. Ventricles: No hydrocephalus or displacement. Extra-axial spaces: No abnormal density. Brain volume: Mild generalized cerebral volume loss. Craniocervical junction: No mass, Chiari malformation, or basilar invagination. Sella: No mass. Paranasal/mastoid sinuses: Imaged portions unremarkable. IMPRESSION: No acute intracranial abnormality. No change since CT brain from 04/03/2018. Chronic findings: 1. Mild supratentorial white matter microvascular ischemic changes. 2. Mild generalized cerebral volume loss. 3. Multifocal scattered dystrophic calcification, possibly a sequel of prior infection/inflammation or trauma. Signed by: Dr. Gabby Miranda M.D. on 04/05/2018 9:17 PM
--- NOTE | 2018-04-05 23:33 | Diagnostic Imaging Report ---
ABDOMEN-1VIEW (KUB) Clinical history: NG tube placement Technique: AP view abdomen Comparison: Same day Findings: NG tube curled/kinked with tip oriented retrograde over the mid esophagus. Moderate gastric distention visualized. Right lateral abdomen and pelvis are excluded from view. Impression: NG tube coiled with tip oriented retrograde over the mid esophagus. Recommend repositioning. Signed by: Dr Yoselyn Dailey MD on 04/05/2018 11:30 PM
[2018-04-06] VITALS (16 sets, daily range): BP systolic 41–153; BP diastolic 22–81
[2018-04-06] MEDS ORDERED: LORAZEPAM INJ 2 MG/ML VIAL IV ONE (00:30)
[2018-04-06] MEDS ORDERED: BENZOCAINE 20% SPR 60 ML CAN MT ONE (00:30)
[2018-04-06] MEDS ORDERED: BENZOCAINE 20% SPR 60 ML CAN ONE (02:13)
--- NOTE | 2018-04-06 04:07 | Diagnostic Imaging Report ---
ABDOMEN-1VIEW (KUB) Clinical history: NG tube placement Technique: AP view abdomen Comparison: 04/05/2018 Findings: Motion artifact with upper abdomen image. Resolved gastric distention. Cholecystectomy clips. Impression: NG tube tip and side-port project over the left upper quadrant in the region of expected stomach. Signed by: Dr Yoselyn Dailey MD on 04/06/2018 4:03 AM
[2018-04-06 06:20] LABS: BASOPHILS % 0.2 % (0.0-1.0); EOSINOPHILS % 0.3 % (0.0-6.0); HEMATOCRIT 26.6 % (34.2-44.1); HEMOGLOBIN 8.4 g/dL (12.0-16.0); LYMPHOCYTES # (AUTO) 1.9 (1.0-3.2); LYMPHOCYTES % 21.2 % (18.0-39.1); MEAN CORPUSCULAR HEMOGLOBIN 26.8 pg (28-32); MEAN CORPUSCULAR HGB CONC 31.6 g/dL (31-35); MONOCYTES # (AUTO) 0.5 (0.2-0.8); MONOCYTES % 5.8 % (4.4-11.3); NEUTROPHILS # (AUTO) 6.4 (2.1-6.9); NEUTROPHILS % 72.2 % (38.7-80.0); PLATELET COUNT 127 x10e3/uL (140-360); RED BLOOD COUNT 3.13 x10e6/uL (3.6-5.1); RED CELL DISTRIBUTION WIDTH 17.7 % (11.7-14.4)
[2018-04-06 06:47] LABS: ANION GAP 22.3 mmol/L (8-16); CALCIUM 8.7 mg/dL (8.4-10.2)
[2018-04-06 06:50] LABS: POTASSIUM 5.3 mmol/L (3.5-5.1)
[2018-04-06 06:51] LABS: CREATININE, SERUM 5.47 mg/dL (0.57-1.11)
[2018-04-06] MEDS: INSULIN REGULAR, HUMAN 100 UNIT/1 ML 3ML VIAL SQ SCH ×3 (07:30→16:30)
[2018-04-06] MEDS: THIAMINE HCL INJ 100 MG/ML 2ML VIAL IV SCH (09:28)
[2018-04-06] MEDS: FOLIC ACID/CYANOCOB/PYRIDOXINE TAB PO SCH (09:28)
[2018-04-06] MEDS: LACTULOSE SYRUP 20 GM/30 ML UDC PO SCH ×2 (09:28→12:57)
[2018-04-06] MEDS ORDERED: SODIUM CHLORIDE 0.9% 1000ML 1,000 ML ONE (10:13)
--- NOTE | 2018-04-26 13:39 | Discharge Summary ---
SUMMARY DIAGNOSIS: secondary to hepatic encephalopathy from cirrhosis. HISTORY OF PRESENT ILLNESS AND HOSPITAL COURSE: Patient is a 72-year-old lady with severe end-stage liver disease and cirrhosis who has hepatic encephalopathy who presented from a [facility] with severe elevated ammonia, who also has end-stage renal disease. She was seen by both renal and GI. Due to patient's significant comorbidities, was most likely eminent and the hospice was being discussed and unfortunately on April 06, 2018 at 5:11 p.m., the patient was pronounced . Please see hospital chart for full details since this discharge summary is not all-encompassing. CLARIBEL TRAN MD Job#: [id number] PUN
== END 2018-04-06 20:32 | disposition expired | DRG 441 ==
LOC: ER 17:31 → ERHOLD 20:59 → MED/SURG2 22:11 → ICU 04-05 17:56 → IMCU 04-06 13:36
PROVIDERS: ADMIT Internal Medicine; ATTEND Internal Medicine
PROC: 5A1D70Z Performance of Urinary Filtration, Intermittent, Less than 6 Hours Per Day (ICD-10-PCS; principal; 2018-04-04)
PROC: 0DH673Z Insertion of Infusion Device into Stomach, Via Natural or Artificial Opening (ICD-10-PCS; 2018-04-05)
DX: K72.11 Chronic hepatic failure with coma (principal); N18.6 End stage renal disease; R53.2 Functional quadriplegia; G93.41 Metabolic encephalopathy; I12.0 Hypertensive chronic kidney disease with stage 5 chronic kidney disease or end stage renal disease; E87.2 Acidosis; K74.60 Unspecified cirrhosis of liver; B18.2 Chronic viral hepatitis C; E11.22 Type 2 diabetes mellitus with diabetic chronic kidney disease; Z99.2 Dependence on renal dialysis; D63.1 Anemia in chronic kidney disease; F03.90 Unspecified dementia, unspecified severity, without behavioral disturbance, psychotic disturbance, mood disturbance, and anxiety; Z66 Do not resuscitate; Z79.82 Long term (current) use of aspirin; N30.90 Cystitis, unspecified without hematuria
CPT/HCPCS: 36415; 36600; 51700; 70450; 71045; 74018; 80048; 80053; 80307; 81001; 82140; 82270; 82550; 82553; 82805; 82948; 83605; 83735; 84443; 84484; 85014; 85018; 85025; 87340; 87493; 90962; 93005; 94660; 99285; J0360; J1644; J2060; J2270; J3411; J7030; Q4081